=== PATIENT | male | born 1950 | race Caucasian/White ===

== ENCOUNTER 2018-10-02 20:50 | Emergency (ER) | payer OTHER, MEDICAID ==
[~2018-10-02] VITALS: Ht 182.9 cm; Wt 83.9 kg
[2018-10-02 21:13] VITALS: Ht 182.9 cm; Wt 83.9 kg
[2018-10-02 21:44] VITALS: BP 142/89
== END 2018-10-02 21:44 | disposition other institution (70) ==
LOC: ED 20:50
DX: Z02.89 Encounter for other administrative examinations (principal); G89.29 Other chronic pain; M54.6 Pain in thoracic spine; I10 Essential (primary) hypertension; E11.9 Type 2 diabetes mellitus without complications

== ENCOUNTER 2018-10-02 20:50 | Emergency (ER) | payer OTHER | END 2018-10-02 21:44 | disposition other institution (70) | LOC: ED 20:50 | DX: Z02.89 Encounter for other administrative examinations (principal) ==